=== PATIENT | female | born 1985 | race Caucasian/White ===

== ENCOUNTER 2018-06-13 16:34 | Emergency (ER) | payer BC, OTHER ==
[2018-06-13 20:07] LABS: Absolute Lymphocytes (CBC) 3.3 K/uL (0.7-4.9); Absolute Monocytes 0.5 K/uL (0.1-1.3); Absolute Neutrophil 4.5 K/uL (1.8-8.0); Basophils % 0.9 % (0-1.3); Eosinophils % 2.2 % (0-4.4); Lymphocytes % 38.5 % (15.3-44.8); MCH 30.1 pg (27.0-35.0); MCV 88.6 fL (80-100); MPV 7.8 fL (7.6-11.3)
--- NOTE | 2018-06-13 20:18 | RAD REPORT ---
EXAM DESCRIPTION: RAD - Chest Single View - 06/13/2018 8:11 pm CLINICAL HISTORY: CONGESTION Chest pain. COMPARISON: No comparisons FINDINGS: Portable technique limits examination quality. The lungs are grossly clear. The heart is normal in size. No displaced fractures. IMPRESSION: No acute intrathoracic process suspected.
[2018-06-13 20:25] LABS: Protime INR 0.93
[2018-06-13 20:28] LABS: ALT/SGPT 25 U/L (12-78); AST/SGOT 16 U/L (15-37); Albumin 3.9 g/dL (3.4-5.0); Alkaline Phosphatase 67 U/L (45-117); BUN Blood Urea Nitrogen 12 mg/dL (7-18); Bicarbonate 28 mmol/L (21-32); Bilirubin Direct < 0.1 mg/dL (0-0.2); Bilirubin Total 0.2 mg/dL (0.2-1.0); Glucose Level 87 mg/dL (74-106); Magnesium 2.4 mg/dL (1.8-2.4); Potassium 3.8 mmol/L (3.5-5.1); Protein, Total 7.7 g/dL (6.4-8.2); Sodium Level 138 mmol/L (136-145); Troponin (Emerg Dept Use Only) < 0.02 ng/mL (0.0-0.045)
[2018-06-13 20:33] LABS: NT PRO-BNP < 5 pg/mL (<125)
--- NOTE | 2018-06-13 20:35 | RAD REPORT ---
EXAM DESCRIPTION: CT - Head Brain Wo Cont - 06/13/2018 8:28 pm CLINICAL HISTORY: DIZZINESS Drowsiness, headache COMPARISON: No comparisons TECHNIQUE: All CT scans are performed using dose optimization technique as appropriate and may inclu de automated exposure control or mA/KV adjustment according to patient size. FINDINGS: No intracranial hemorrhage, hydrocephalus or extra-axial fluid collection.No areas of brai n edema or evidence of midline shift. The paranasal sinuses and mastoids are clear. The calvarium is intact. IMPRESSION: No acute intracranial abnormality.
[2018-06-13] MEDS ORDERED: NA CHLORIDE 0.9% 1,000 ML ONE (20:44)
[2018-06-13] MEDS ORDERED: MECLIZINE HCL 12.5 MG TAB ONE (20:44)
[2018-06-13 20:58] LABS: Urine Blood NEGATIVE (NEG); Urine Glucose NEGATIVE (NEG); Urine Protein NEGATIVE (NEG); Urine Specific Gravity 1.015 (1.005-1.030)
--- NOTE | 2018-06-13 21:57 | EDPHYS ---
Physician Documentation [facility] Name: Bobbi Pimentel Age: 33 yrs Sex: Female : 1985 Arrival Date: 06/13/2018 Time: 16:41 Bed 15 Private MD: None, None ED Physician Cortes Nielsen HPI: 06/13 21:22 This 33 yrs old Female presents to ER via Ambulatory with complaints of tw4 Dizziness. 21:22 The patient presents with dizziness. Onset: The symptoms/episode began/occurred 6 tw4 day(s) ago. Context: occurred at home, occurred while the patient was. Modifying factors: The symptoms are alleviated by nothing, the symptoms are aggravated by nothing. Associated signs and symptoms: The patient has no apparent associated signs or symptoms. Severity of symptoms: At their worst the symptoms were moderate in the emergency department the symptoms. The patient has not experienced similar symptoms in the past. 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 - Social history:: Smoking status: Patient uses tobacco products, 1-2 cigarettes a day . - Ebola Screening: : No symptoms or risks identified at this time. ROS: 21:22 Constitutional: Negative for fever, chills, and weight loss, Eyes: Negative for injury, tw4 pain, redness, and discharge, Cardiovascular: Negative for chest pain, palpitations, and edema, Respiratory: Negative for shortness of breath, cough, wheezing, and pleuritic chest pain, Abdomen/GI: Negative for abdominal pain, nausea, vomiting, diarrhea, and constipation, Back: Negative for injury and pain, MS/Extremity: Negative for injury and deformity, Skin: Negative for injury, rash, and discoloration. 21:22 Neuro: Positive for dizziness, Negative for altered mental status, gait disturbance, headache, hearing loss, loss of consciousness, numbness, seizure activity, speech changes, tinnitus, tremor, visual changes, weakness. Exam: 21:22 Constitutional: This is a well developed, well nourished patient who is awake, alert, tw4 and in no acute distress. Head/Face: Normocephalic, atraumatic. ENT: Nares patent. No nasal discharge, no septal abnormalities noted. Tympanic membranes are normal and external auditory canals are clear. Oropharynx with no redness, swelling, or masses, exudates, or evidence of obstruction, uvula midline. Mucous membranes moist. Chest/axilla: Normal chest wall appearance and motion. Nontender with no deformity. No lesions are appreciated. Cardiovascular: Regular rate and rhythm with a normal S1 and S2. No gallops, murmurs, or rubs. Normal PMI, no JVD. No pulse deficits. Respiratory: Lungs have equal breath sounds bilaterally, clear to auscultation and percussion. No rales, rhonchi or wheezes noted. No increased work of breathing, no retractions or nasal flaring. Abdomen/GI: Soft, non-tender, with normal bowel sounds. No distension or tympany. No guarding or rebound. No evidence of tenderness throughout. Back: No spinal tenderness. No costovertebral tenderness. Full range of motion. Skin: Warm, dry with normal turgor. Normal color with no rashes, no lesions, and no evidence of cellulitis. MS/ Extremity: Pulses equal, no cyanosis. Neurovascular intact. Full, normal range of motion. Neuro: Awake and alert, GCS 15, oriented to person, place, time, and situation. Cranial nerves II-XII grossly intact. Motor strength 5/5 in all extremities. Sensory grossly intact. Cerebellar exam normal. Normal gait. 22:01 ECG was reviewed by the Attending Physician. tw4 Vital Signs: 17:04 BP 138 / 89; Pulse 76; Resp 18 S; Temp 98.2(TE); Pulse Ox 100% on R/A; Weight 83.91 kg aa5 (R); Height 5 ft. 6 in. (167.64 cm) (R); Pain 1/10; 19:22 BP 109 / 68 LA Supine; Pulse 64; Resp 16; Pulse Ox 100% on R/A; jb4 19:24 BP 121 / 81 LA Sitting; Pulse 68; Resp 16; Pulse Ox 100% on R/A; jb4 19:25 BP 133 / 89 LA Standing; Pulse 78; Resp 16; Pulse Ox 100% on R/A; jb4 19:45 BP 118 / 62; Pulse 67; Resp 18; Pulse Ox 97% on R/A; mt 20:36 BP 114 / 78; Pulse 67; Resp 18; Pulse Ox 98% on R/A; mt 21:05 BP 101 / 65; Pulse 72; Resp 16; Pulse Ox 100% on R/A; mt 21:45 BP 111 / 77; Pulse 67; Resp 16; Pulse Ox 100% on R/A; jb4 17:04 Body Mass Index 29.86 (83.91 kg, 167.64 cm) aa5 MDM: 18:43 Patient medically screened. tw4 21:22 Differential diagnosis: cardiac arrhythmia, CVA, generalized weakness, head injury. tw4 Data reviewed: vital signs, nurses notes. 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 Test interpretation: by ED physician or midlevel provider: ECG. Counseling: I had a detailed discussion with the patient and/or guardian regarding: the historical points, exam findings, and any diagnostic results supporting the discharge/admit diagnosis, lab results, radiology results. 06/13 19:45 Order name: Basic Metabolic Panel; Complete Time: 21:24 tw4 06/13 21:25 Interpretation: Within normal limits. tw06/13 19:45 Order name: CBC with Diff; Complete Time: 21:25 tw4 06/13 21:25 Interpretation: Within normal limits. tw4 06/13 19:45 Order name: LFT's; Complete Time: 21:25 tw4 06/13 21:25 Interpretation: Normal except: GLOB 3.8; A/G 1.0. tw4 06/13 19:45 Order name: Magnesium; Complete Time: 21:25 tw4 06/13 21:25 Interpretation: Within normal limits: MG 2.4. tw4 06/13 19:45 Order name: NT PRO-BNP; Complete Time: 21:25 tw4 06/13 21:25 Interpretation: Within normal limits: NT PRO-BNP < 5. tw4 06/13 19:45 Order name: PT-INR; Complete Time: 21:25 tw4 06/13 21:25 Interpretation: Within normal limits: PT 11.0. tw4 06/13 19:45 Order name: Troponin (emerg Dept Use Only); Complete Time: 21:25 tw4 06/13 21:25 Interpretation: Within normal limits: TROPED < 0.02. tw4 06/13 19:45 Order name: XRAY Chest (1 view); Complete Time: 21:25 4 06/13 21:25 Interpretation: No acute disease. 4 06/13 19:45 Order name: Cardiac monitoring; Complete Time: 20:10 tw4 06/13 20:01 Order name: CT Head Brain wo Cont; Complete Time: 21:26 4 06/13 21:26 Interpretation: No acute disease. [facility] 06/13 20:26 Order name: Urine Dipstick--Ancillary (enter results) 06/13 20:26 Order name: Urine --Ancillary (enter results) 06/13 19:45 Order name: IV Saline Lock; Complete Time: 20:04 tw4 06/13 19:45 Order name: Labs collected and sent; Complete Time: 20:04 4 06/13 19:45 Order name: O2 Per Protocol; Complete Time: 20:04 4 06/13 19:45 Order name: O2 Sat Monitoring; Complete Time: 20:04 tw4 EC:01 Rate is 63 beats/min. Rhythm is regular. QRS [place] is Normal. [place] interval is normal. QRS tw4 interval is normal. QT interval is normal. No Q waves. No ST changes noted. Clinical impression: Normal ECG. Interpreted by me. Reviewed by me. Administered Medications: 20:35 Drug: Meclizine 50 mg Route: PO; [facility] 21:15 Follow up: Response: No adverse reaction; Marked relief of symptoms [facility] 20:35 Drug: NS 0.9% 1000 ml Route: IV; Rate: 1 bolus; Site: right antecubital; 4 21:40 Follow up: Response: No adverse reaction; IV Status: Completed infusion [facility] Disposition: 06/13/18 21:56 Discharged to Home. Impression: Dizziness and giddiness. - Condition is Stable. - Discharge Instructions: Dizziness. - Prescriptions for Meclizine 25 mg Oral Tablet - take 1 tablet by ORAL route every 8 hours As needed; 30 tablet. - Medication Reconciliation Form, Thank You Letter, Antibiotic Education, Prescription Opioid Use form. - Follow up: Private Physician; When: Upon discharge from the Emergency Department; Reason: If symptoms return, Recheck today's complaints, Continuance of care. Follow up: Christian Bush MD; When: Upon discharge from the Emergency Department; Reason: If symptoms return, Recheck today's complaints, Continuance of care. - Problem is new. - Symptoms have improved. Signatures: Dispatcher [employer] Debi Hand, RN RN aa5 Amandeep Barillas RN RN jb4 Cortes Nielsen MD MD tw4 Corrections: (The following items were deleted from the chart) 22:09 21:56 06/13/2018 21:56 Discharged to Home. Impression: Dizziness and giddiness. jb4 Condition is Stable. Forms are Medication Reconciliation Form, Thank You Letter, Antibiotic Education, Prescription Opioid Use. Follow up: Private Physician; When: Upon discharge from the Emergency Department; Reason: If symptoms return, Recheck today's complaints, Continuance of care. Follow up: Christian Bush; When: Upon discharge from the Emergency Department; Reason: If symptoms return, Recheck today's complaints, Continuance of care. Problem is new. Symptoms have improved. tw4
--- NOTE | 2018-06-13 21:57 | ER ---
Nurse's Notes [facility] Name: Bobbi Pimentel Age: 33 yrs Sex: Female : 1985 Arrival Date: 06/13/2018 Time: 16:41 Bed 15 Private MD: None, None Diagnosis: Dizziness and giddiness Presentation: 06/13 17:02 Presenting complaint: Patient states: dizziness that began 6 days ago. Pt states "maybe aa5 one hour out of the day I don't feel dizzy but it's been pretty constant". Pt reports slight headache at this time. Denies N/V. Transition of care: patient was not received from another setting of care. Onset of symptoms was June 2018. Risk Assessment: Do you want to hurt yourself or someone else? Patient reports no desire to harm self or others. Initial Sepsis Screen: Does the patient meet any 2 criteria? No. Patient's initial sepsis screen is negative. Does the patient have a suspected source of infection? No. Patient's initial sepsis screen is negative. Care prior to arrival: None. 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 - Social history:: Smoking status: Patient uses tobacco products, 1-2 cigarettes a day . - Ebola Screening: : No symptoms or risks identified at this time. Screenin:00 Abuse screen: Denies threats or abuse. Nutritional screening: No deficits noted. jb4 Tuberculosis screening: No symptoms or risk factors identified. Fall Risk None identified. Assessment: 19:20 General: Appears in no apparent distress. comfortable, Behavior is calm, cooperative, jb4 appropriate for age, Pt reports worsening of dizziness when standing. "the room is not spinning I just feel like I'm going to fall forward when I stand up,a dn when I am sitting down and I look left to right, it just feels like it is in slow motion. I do not feel stopped up or congested. and I do not have any pain or other symptoms.". Pain: Denies pain. Neuro: Level of Consciousness is awake, alert, obeys commands, confused, Oriented to person, place, time, situation, Speech is normal, Pupils are PERRLA. 19:20 Cardiovascular: Patient's skin is warm and dry. Respiratory: Airway is patent jb4 Respiratory effort is even, unlabored, Respiratory pattern is regular, symmetrical. GI: No signs and/or symptoms were reported involving the gastrointestinal system. : No signs and/or symptoms were reported regarding the genitourinary system. EENT: Throat is clear is pink. Derm: Skin is intact, Skin is pink, warm \\T\\ dry. Musculoskeletal: Circulation, motion, and sensation intact. 21:00 Reassessment: Patient appears in no apparent distress at this time. Patient and/or jb4 family updated on plan of care and expected duration. Pain level reassessed. Patient is alert, oriented x 3, equal unlabored respirations, skin warm/dry/pink. 22:04 Reassessment: Patient appears in no apparent distress at this time. Patient and/or jb4 family updated on plan of care and expected duration. Pain level reassessed. Patient is alert, oriented x 3, equal unlabored respirations, skin warm/dry/pink. Discussed D/c, F/u with pt and spouse, denies questions or concerns. Vital Signs: 17:04 BP 138 / 89; Pulse 76; Resp 18 S; Temp 98.2(TE); Pulse Ox 100% on R/A; Weight 83.91 kg aa5 (R); Height 5 ft. 6 in. (167.64 cm) (R); Pain 1/10; 19:22 BP 109 / 68 LA Supine; Pulse 64; Resp 16; Pulse Ox 100% on R/A; jb4 19:24 BP 121 / 81 LA Sitting; Pulse 68; Resp 16; Pulse Ox 100% on R/A; jb4 19:25 BP 133 / 89 LA Standing; Pulse 78; Resp 16; Pulse Ox 100% on R/A; jb4 19:45 BP 118 / 62; Pulse 67; Resp 18; Pulse Ox 97% on R/A; mt 20:36 BP 114 / 78; Pulse 67; Resp 18; Pulse Ox 98% on R/A; mt 21:05 BP 101 / 65; Pulse 72; Resp 16; Pulse Ox 100% on R/A; mt 21:45 BP 111 / 77; Pulse 67; Resp 16; Pulse Ox 100% on R/A; jb4 17:04 Body Mass Index 29.86 (83.91 kg, 167.64 cm) aa5 ED Course: 16:41 Patient arrived in ED. mr 16:42 None, None is Private Physician. mr 17:02 Arm band placed on. aa5 17:03 Triage completed. aa5 18:43 Cortes Nielsen MD is Attending Physician. tw4 19:00 Patient has correct armband on for positive identification. Placed in gown. Bed in low jb4 position. Call light in reach. Side rails up X 1. playground monitor on. Pulse ox on. NIBP on. 19:21 Amandeep Barillas, RN is Primary Nurse. jb4 19:30 Initial lab(s) drawn, by ED staff, sent to lab. Inserted saline lock: 20 gauge in right jb4 antecubital area, using aseptic technique. Blood collected. 20:11 XRAY Chest (1 view) In Process Unspecified. EDMS 20:28 CT Head Brain wo Cont In Process Unspecified. EDMS 21:56 Christian Bush MD is Referral Physician. tw4 22:06 No provider procedures requiring assistance completed. jb4 22:06 IV discontinued, intact, bleeding controlled. jb4 Administered Medications: 20:35 Drug: Meclizine 50 mg Route: PO; jb4 21:15 Follow up: Response: No adverse reaction; Marked relief of symptoms jb4 20:35 Drug: NS 0.9% 1000 ml Route: IV; Rate: 1 bolus; Site: right antecubital; jb4 21:40 Follow up: Response: No adverse reaction; IV Status: Completed infusion jb4 Outcome: 21:56 Discharge ordered by . tw4 22:06 Discharged to home ambulatory, with family. jb4 22:06 Condition: stable 22:06 Discharge instructions given to patient, significant other, Instructed on discharge instructions, follow up and referral plans. medication usage, Demonstrated understanding of instructions, follow-up care, medications, Prescriptions given X 1. 22:09 Patient left the ED. jb4 Signatures: Dispatcher [facility] AlexanderWanda GonzalezDebi shannon RN RN aa5 Amandeep Barillas RN RN jb4 Jo-Ann Stone mt [place], Cortes, MD MD tw4
--- NOTE | 2018-06-14 07:41 | EKG ---
Test Date: 2018-06-13 Test Time: 21:46:19 Core Driller: DUSTIN MEASUREMENT RESULTS: Intervals: Rate: 63 AR: 174 QRSD: 86 QT: 426 QTc: 435 [place]: P: 43 AR: 174 QRS: 24 T: 18 INTERPRETIVE STATEMENTS: Normal sinus rhythm with sinus arrhythmia Normal ECG No previous ECG available for comparison Electronically Signed On 06-14-18 07:40:53 [employer] G[employer] LEASE PUMPER by Frederick Aldrich
== END 2018-06-13 22:09 | disposition home or self-care (01) ==
LOC: ER 16:34
DX: R42 Dizziness and giddiness (principal); Z72.0 Tobacco use
CPT/HCPCS: 36415; 70450; 71045; 80048; 80076; 81003; 81025; 83735; 83880; 84484; 85025; 85610; 93005; 96360; 99284; J7030